=== PATIENT | male | born 1945 | race Caucasian/White ===

== ENCOUNTER → 2018-10-24 | Outpatient (CLI) | payer MEDICARE, OTHER ==
--- NOTE | 2018-10-25 09:19 | RADIOLOGY IMAGING REPORT ---
FACILITY: [facility] PATIENT NAME: Juan Vizcarra : 1945 MR: [id number] V: [id number] EXAM DATE: ORDERING PHYSICIAN: NICOLÁS HOOVER TECHNOLOGIST: Location: [facility] [place] Patient: Juan Vizcarra : 1945 Visit/Account:[id number] Date of Sevice: 10/24/2018 2 VIEWS CHEST INDICATION: Possible mesothelioma. COMPARISON: None available FINDINGS: Heart is within normal limits. The lungs are clear without focal infiltrate, consolidation, effusion or pneumothorax. No mass. No destructive osseous process. No calcified pleural plaques are identi fied. Degenerative changes in the spine without acute bony finding. IMPRESSION: 1. No evidence of acute bony finding. No mass or calcified pleural plaques identified. Report Dictated By: Juve Ramirez MD at 10/24/2018 12:26 PM Report E-Signed By: Juve Ramirez MD at 10/24/2018 12:27 PM WSN:[id number]
== END ==
LOC: RAD 11:09
PROVIDERS: ATTEND Family Medicine
DX: Z77.090 Contact with and (suspected) exposure to asbestos (principal)
CPT/HCPCS: 71046

== ENCOUNTER → 2019-02-21 | Outpatient (CLI) | payer MEDICARE, OTHER ==
--- NOTE | 2019-02-21 10:47 | RT STRESS TEST REPORT ---
FACILITY: [facility] - [place] PATIENT NAME: IAN ANGLIN : [id number] MR: [id number] V: [id number] EXAM DATE: ORDERING PHYSICIAN: GEO ANDRES TECHNOLOGIST: Oziel Acquisition Time: 2019-02-21 08:47:51 Total Exercise Time: 00:05:35 Test Indications: Chest Pain / Discomfort Medications: amoxicillin zantac aspirin "focus factor" Protocol: BRUCE2 Max HR: 134 BPM 91% of Pred: 146 BPM Max BP: 205/091 mmHG Max Work Load: 7.0 METS Patient experienced chest tightness during stage 2 of exercising at 4:28 minutes which quickly got w orse accompanied by SOB. The te4st was terminated at that time and patient received s/l NTG x 1 Chest pain was gone 2:37 minutes in recove ry No obvious EKG changes noted Impression Non Specific EKG changes in inferior leads typical Chest pain with exercise that resolved with NTG x 1 and rest Resting HTN with exagerrated response occassional PVCs Recommend Nuclear medicine stress test or Cardiology Referral Confirmed by EMMETT BROOKS ([id number]) on 02/21/2019 10:47:14 AM Referred By: Geo Andres Overread By: EMMETT BROOKS
== END ==
LOC: RESP 01:26
PROVIDERS: ATTEND Family Medicine
DX: R07.2 Precordial pain (principal)
CPT/HCPCS: 93017

== ENCOUNTER → 2019-05-31 | Outpatient (CLI) | payer MEDICARE, OTHER | LOC: RESP 01:16 | PROVIDERS: ATTEND Student in an Organized Health Care Education/Training Program | DX: J92.0 Pleural plaque with presence of asbestos (principal); R06.09 Other forms of dyspnea | CPT/HCPCS: 94060; 94618; 94726; 94729 ==